=== PATIENT | male | born 1960 | race Two or more races ===

== ENCOUNTER → 2023-11-06 | Emergency (ER) | payer BC ==
[~2023-11-06] VITALS: Ht 180.3 cm; Wt 93.0 kg
[~2023-11-06] MED LIST: HYDRO; LASIX40 MG; ZOVIRAX400 MG PO
== END | disposition left against medical advice (07) ==
LOC: ER 14:57
DX: S50.01XA Contusion of right elbow, initial encounter (principal); W10.0XXA Fall (on)(from) escalator, initial encounter; Y93.89 Activity, other specified; Y92.59 Other trade areas as the place of occurrence of the external cause; I49.8 Other specified cardiac arrhythmias; Z85.89 Personal history of malignant neoplasm of other organs and systems

== ENCOUNTER 2024-01-13 09:35 | Emergency (ER) | payer OTHER ==
[~2024-01-13] VITALS: Ht 180.3 cm; Wt 95.3 kg
[2024-01-13 12:56] LABS: HEMATOCRIT 30.9 % (39.0-48.0); HEMOGLOBIN 10.6 g/dL (13-16.00); MEAN CELL VOLUME 103.3 fL (80.0-100.00); MEAN CORPUSCULAR HEMOGLOBIN 35.2 pg (27.00-32.0); MEAN CORPUSCULAR HGB CONC 34.1 g/dl (32.0-36.0); PLATELET COUNT 110 K/uL (150-450); RED CELL DISTRIBUTION WIDTH 13.8 % (11.5-14.5)
[2024-01-13 13:19] LABS: INR 1.21; PROTHROMBIN TIME 12.5 SECONDS (9.0-11.5)
[2024-01-13 13:20] LABS: PARTIAL THROMBOPLASTIN TIME 40.6 SECONDS (22.0-34.0)
[2024-01-13 13:21] LABS: CALCIUM 9.8 mg/dL (8.5-10.1); GFR 10.12; POTASSIUM 4.2 mEq/L (3.5-5.1)
[2024-01-13 13:32] LABS: CREATININE SERUM 5.69 mg/dL (0.70-1.30)
== END 2024-01-13 15:12 | disposition left against medical advice (07) ==
LOC: ER
PROVIDERS: General Practice
DX: N18.9 Chronic kidney disease, unspecified (principal); R04.2 Hemoptysis; R05.9 Cough, unspecified; Z20.822 Contact with and (suspected) exposure to COVID-19